=== PATIENT | female | born 1940 | race Caucasian/White ===

== ENCOUNTER → 2021-04-25 09:49 | Outpatient (BNVA) | payer OTHER, SELFPAY | PROVIDERS: PCP Family Medicine; Referring Provider Orthopaedic Surgery; Visit Provider Nurse Practitioner Adult Health | DX: G56.02 Carpal tunnel syndrome, left upper limb (principal); I10 Essential (primary) hypertension | CPT/HCPCS: 95886; 95908; 99205 ==